=== PATIENT | male | born 1945 | race Caucasian/White ===

== ENCOUNTER → 2020-11-16 10:30 | Outpatient (BNVA) | payer MEDICARE, SELFPAY | PROVIDERS: PCP Family Medicine; Referring Provider Family Medicine; Visit Provider Urology | DX: N32.81 Overactive bladder (principal); N40.1 Benign prostatic hyperplasia with lower urinary tract symptoms; N39.490 Overflow incontinence; N13.8 Other obstructive and reflux uropathy; R33.9 Retention of urine, unspecified | CPT/HCPCS: 51798; 81002; 99202 ==

== ENCOUNTER 2020-12-11 06:18 | Day surgery (SDC) | payer MEDICARE, SELFPAY ==
[2020-12-01 20:20] VITALS: BMI 21.2
[2020-12-11] VITALS (12 sets, daily range): BP systolic 160–184; BP diastolic 84–130; PULSE 59–84; RESP 6–20; TEMP 36.1–36.2; O2SAT 96–100
[2020-12-11] MEDS: levoFLOXacin/D5W 500 MG/100 ML PIGGYBACK 100 MG IV (07:12)
--- NOTE | 2020-12-11 07:20 | HO.ANESPROP2 ---
[facility] Past Medical History Medical History Congenital absence of kidney Dementia Hyperactivity of bladder Raynauds phenomenon Sensory hearing loss Surgical History Surgical History History of colonoscopy Social History Social History Smoking Status: Never smoker Use of substances other than those prescribed or required for medical reasons: No Advance Directives: Yes Advance Directives Information Provided: Yes Advance Directives on File: No (will bring in) Advance Directives Date on File: 11/21/18 Meds Allergies Allergy/AdvReac Type Severity Reaction Status Date / Time azithromycin [From Zithromax] Allergy Shortness Verified 12/11/20 06:28 of Breath doxazosin [From Cardura] Allergy Shortness Verified 12/11/20 06:28 of Breath ampicillin [From Principen] AdvReac head Verified 12/11/20 06:28 pressure cephalexin [From Keflex] AdvReac strange Verified 12/11/20 06:28 behavior nifedipine [From Procardia] AdvReac Unknown Verified 12/11/20 06:28 Home Medications Medication Instructions Recorded Confirmed Last Taken Type No Known Home Meds 12/01/20 12/01/20 Unknown History Exam Exam Date and Time: December 11, 2020 0720 Height,Weight and Vital Signs: Height 5 ft 8 in Weight 63.503 kg Last Vital Signs Temp 97.2 F 12/11/20 06:28 Pulse 61 12/11/20 06:28 Resp 18 12/11/20 06:28 BP 177/94 H 12/11/20 06:28 Pulse Ox 99 12/11/20 06:28 Airway Mallampati Class: II TM Dist: >3cm Neck ROM: Full
[2020-12-11] MEDS: Lactated Ringers 1,000 ML 100 ML IVCONT (07:31)
--- NOTE | 2020-12-11 07:43 | MHC.SHP ---
Pre-Procedural Eval Section B Chief Complaint: overactive bladder Details of Present Illness: Overflow incontinence Relevant Family History (Specify if Yes): No Relevant Social History: None Present Medications: None Medical History: No relevant PMH History of Previous Operations: No relevant previous surgery Allergies: Allergies Allergy/AdvReac Type Severity Reaction Status Date / Time azithromycin [From Zithromax] Allergy Shortness Verified 12/11/20 06:28 of Breath doxazosin [From Cardura] Allergy Shortness Verified 12/11/20 06:28 of Breath ampicillin [From Principen] AdvReac head Verified 12/11/20 06:28 pressure cephalexin [From Keflex] AdvReac strange Verified 12/11/20 06:28 behavior nifedipine [From Procardia] AdvReac Unknown Verified 12/11/20 06:28 Review of Systems Sugical H&P ROS: Negative: Constitution, Cardiovascular, Respiratory, Neurological, Psychiatric, Hem-Onc, Allergic/Immunologic, Gastrointestinal, Genitourinary, Musculoskeletal, Integumentary, Endocrine and Eyes/Ears/Nose/Throat Exam Surgical H&P Exam: Normal: HEENT, Normal: Heart, Normal: Lungs, Normal: Extremities, Normal: Abdomen, Normal: Skin and Normal: Neurological Plan Diagnosis/Plan: Unchanged I have reviewed the history and physical and performed a pertinent physical examination on my patient. No changes have occurred unless specified. Cystoscopy, suprapubic tube placement, laser enucleation of prostate
--- NOTE | 2020-12-11 09:17 | PM.OP ---
Brief Operative Note Date of Service: 12/11/20 Pre-op diagnosis: BPH with urinary retention Post-op diagnosis: same Procedure: Laser enucleation of the prostate Suprapubic tube placement Implants: Nickerson catheter 16 Vietnamese Surgeon: Jarrell Lafleur MD Anesthesia: GLMA Estimated blood loss (mL): 10 Pathology: other (Prostate) Condition: stable Disposition: same day
--- NOTE | 2020-12-11 09:18 | W.PM.OPN ---
Operative Note Operative Note Date of Service: 12/11/20 Narrative: PreOperative Diagnosis: BPH with urinary retention Post Operative Diagnosis: BPH with urinary retention Procedure: 1. Cystoscopy and suprapubic tube placement, 2. Laser enucleation of the prostate Surgeon: Dr Jarrell Lafleur Anesthesia: General Indications for procedure: This is a 75-year-old male. He had presented with overflow incontinence. Large postvoid residual. Urinating many small times a day. This has been going on for number of years. On cystoscopy had a large median lobe double humped. Recommendation was for GreenLight laser enucleation of the prostate plus suprapubic tube placement. Risks and benefits were discussed with himself and with his healthcare proxy. Procedure: After informed consent was verified the patient was brought to the operating room and placed in a supine position. Anesthesia was administered per protocol. Patient was placed in modified dorsal lithotomy position and prepped and draped in a sterile fashion. Safety pause time-out performed. Antibiotics had been confirmed. Cystoscopy was performed. He had a large double helped median lobe. The bladder was filled. A finer needle was placed 2 fingerbreadths superior to the symphysis pubis. A 1 cm incision was made. A trocar was placed in suprapubic tube was placed. This was visible through the cystoscope. Sixteen Nicaraguan Nickerson catheter with 10 cc balloon was placed. The laser resectoscope was placed in the prostate. Using a GreenLight laser the double hump large median lobe was reduced using a combination of enucleation ablation. Issues total of 250 kilojoules with a total lasing time approximately 32 minutes. A large defect was left where the median lobe had been. It was apparent that lateral lobe removal was not necessary at this point in time. A 22 Nicaraguan 30 cc Nickerson catheter was placed with good hemostasis. Specimens were sent for pathology. A belladonna suppository was used for postprocedure pain management. He tolerated procedure well was extubated in the operating room and transferred in a stable condition to the recovery area. Pathology: Prostate specimen Drains: Twenty-two Nicaraguan Nickerson catheter from penis, 16 Nicaraguan Nickerson catheter from suprapubic tube
[2020-12-11] MEDS: fentaNYL citrate/PF 100 MCG/2 ML VIAL 50 MCG IVPUSH ×3 (09:49→10:20)
[2020-12-11] MEDS: oxyCODONE HCl Immed Release 5 MG TABLET PO (10:09)
== END 2020-12-11 11:35 ==
LOC: HO.SSS 06:18
PROVIDERS: PCP Family Medicine; Visit Provider Urology
PROC: 0V507ZZ Destruction of Prostate, Via Natural or Artificial Opening (ICD-10-PCS; CPT 52648; principal; 2020-12-11 07:30)
PROC: (CPT 51102; 2020-12-11 07:30)
DX: N40.1 Benign prostatic hyperplasia with lower urinary tract symptoms (principal); R33.8 Other retention of urine; N32.81 Overactive bladder; N39.490 Overflow incontinence; F03.90 Unspecified dementia, unspecified severity, without behavioral disturbance, psychotic disturbance, mood disturbance, and anxiety; I73.00 Raynaud's syndrome without gangrene; Q60.2 Renal agenesis, unspecified; H91.90 Unspecified hearing loss, unspecified ear; Z79.899 Other long term (current) drug therapy; Z88.1 Allergy status to other antibiotic agents; Z88.8 Allergy status to other drugs, medicaments and biological substances
CPT/HCPCS: 52648; 51102; 88305; J1956; J2405; J3010

== ENCOUNTER → 2020-12-14 10:59 | Outpatient (BNVA) | payer MEDICARE, SELFPAY | PROVIDERS: PCP Family Medicine; Visit Provider Urology | DX: N40.1 Benign prostatic hyperplasia with lower urinary tract symptoms (principal); N13.8 Other obstructive and reflux uropathy; N39.490 Overflow incontinence | CPT/HCPCS: 99212 ==

== ENCOUNTER → 2021-01-03 10:30 | Outpatient (BNVA) | payer MEDICARE, SELFPAY | PROVIDERS: PCP Family Medicine; Visit Provider Urology | DX: Z13.89 Encounter for screening for other disorder (principal) | CPT/HCPCS: 99212 ==

== ENCOUNTER → 2021-01-05 14:01 | Outpatient (BNVA) | payer MEDICARE, SELFPAY | PROVIDERS: PCP Family Medicine; Visit Provider Urology | DX: Z13.89 Encounter for screening for other disorder (principal) | CPT/HCPCS: 51705; 99212 ==

== ENCOUNTER → 2021-01-31 13:09 | Outpatient (BNVA) | payer MEDICARE, SELFPAY | PROVIDERS: PCP Family Medicine; Visit Provider Urology | DX: Z43.5 Encounter for attention to cystostomy (principal); N31.9 Neuromuscular dysfunction of bladder, unspecified | CPT/HCPCS: 51701; 51705; 99212 ==

== ENCOUNTER → 2021-02-28 14:41 | Outpatient (BNVA) | payer MEDICARE, SELFPAY | PROVIDERS: PCP Family Medicine; Visit Provider Urology | DX: N31.9 Neuromuscular dysfunction of bladder, unspecified (principal) | CPT/HCPCS: 51701; 51705; 99212 ==

== ENCOUNTER → 2021-04-05 10:07 | Outpatient (BNVA) | payer MEDICARE, SELFPAY | PROVIDERS: PCP Family Medicine; Visit Provider Urology | DX: Z46.6 Encounter for fitting and adjustment of urinary device (principal); N31.9 Neuromuscular dysfunction of bladder, unspecified | CPT/HCPCS: 51705; 99212 ==

== ENCOUNTER → 2021-05-04 09:59 | Outpatient (BNVA) | payer MEDICARE, SELFPAY | PROVIDERS: PCP Family Medicine; Visit Provider Urology ==

== ENCOUNTER → 2021-05-31 09:37 | Outpatient (BNVA) | payer MEDICARE, SELFPAY | PROVIDERS: PCP Family Medicine; Visit Provider Urology | DX: N31.9 Neuromuscular dysfunction of bladder, unspecified (principal) | CPT/HCPCS: 51705; Q3014 ==

== ENCOUNTER → 2021-12-06 09:04 | Outpatient (BNVA) | payer MEDICARE, SELFPAY | PROVIDERS: PCP Family Medicine; Visit Provider Urology | DX: N31.9 Neuromuscular dysfunction of bladder, unspecified (principal); Z93.50 Unspecified cystostomy status | CPT/HCPCS: 51798; 99212 ==

== ENCOUNTER → 2022-06-12 09:20 | Outpatient (BNVA) | payer MEDICARE, SELFPAY | PROVIDERS: PCP Family Medicine; Visit Provider Urology | DX: N31.9 Neuromuscular dysfunction of bladder, unspecified (principal); N40.1 Benign prostatic hyperplasia with lower urinary tract symptoms; N13.8 Other obstructive and reflux uropathy; N39.0 Urinary tract infection, site not specified | CPT/HCPCS: Q3014 ==

== ENCOUNTER → 2022-12-19 10:13 | Outpatient (BNVA) | payer MEDICARE, SELFPAY | PROVIDERS: PCP Family Medicine; Visit Provider Urology | DX: N31.9 Neuromuscular dysfunction of bladder, unspecified (principal) | CPT/HCPCS: 99212 ==

== ENCOUNTER 2023-07-29 09:03 | Outpatient (AMB) | payer MEDICARE, SELFPAY ==
--- NOTE | 2023-07-29 09:12 | MHC.OFFVIS ---
Intake Intake Visit Reasons: 6m follow up Intake Note: Patient is Present for Follow Up. (Hypotonic Neurogenic Bladder. BPH. Overflow Incontinence) Urology Med: Methenamine Antibiotic Allergy: Azithromycin, Amoxicillin, cephalexin Blood Thinner: None Student Affairs Dean Required: No Accompanied by: Self / Same As Patient Allergies azithromycin [From Zithromax] Allergy (Verified 07/29/23 09:12) Shortness of Breath doxazosin [From Cardura] Allergy (Verified 12/19/22 10:26) Shortness of Breath ampicillin [From Principen] Adverse Reaction (Verified 12/19/22 10:26) head pressure cephalexin [From Keflex] Adverse Reaction (Verified 12/19/22 10:26) strange behavior nifedipine [From Procardia] Adverse Reaction (Verified 12/19/22 10:) Unknown Medication List - Last Reconciled 07/29/23 by Jarrell Lafleur MD catheter (Nickerson Catheter) As directed - 18 Romansh catheterization tray As directed drainage bag Large 3 L overnight urine collection bag fluticasone propionate 50 mcg/actuation 1 spray intranasal BID methenamine hippurate 1 g PO DAILY 90 days sulfamethoxazole-trimethoprim 400-80 mg (Bactrim) 1 tab PO BID sulfamethoxazole-trimethoprim 800-160 mg (Bactrim DS) 1 tab PO BID 5 days syringe (disposable) As directed HPI HPI Comments History of Present Illness Details Torres is a very pleasant male. Accompanied by his partner. He is seen for the following urologic conditions - neurogenic bladder Telemedicine Evaluation 15 min Consultation [employer] Jonathon Video attempted Karlos doing very well Suprapubic site well cared for Takes antibiotics day before and day of catheter change Has methenamine daily Background of progressive memory loss Suprapubic tube change - will be required for foreseeable future Used 18 Romansh Nickerson catheter Doing well with changes and partner changing catheter every 4 weeks Lower urinary tract symptoms: neurogenic bladder Longstanding issues with overflow incontinence Prostate procedure November 2020 GreenLight laser of the prostate with suprapubic tube Suprapubic tube today change Review in 6 months [facility] Medical History Congenital absence of kidney Dementia Hyperactivity of bladder Raynauds phenomenon Sensory hearing loss Surgical History History of colonoscopy Family History (Updated 07/29/23 @ 09:12 by NITISH Senior) Father No problems noted. Mother No problems noted. Social History Advance Directives Date on File: 11/21/18 Review of Systems Const All systems reviewed & are unremarkable except as noted in HPI and below Reports no additional complaints Resp Reports no additional complaints GI Reports no additional complaints Reports as per HPI Musc Reports no additional complaints Physical Exam Telemedicine evaluation Appropriate responses Regular breathing rate and rhythm HEENT Head: Yes normal to inspection Ears: hearing grossly normal bilaterally Eyes General: appearance normal, both eyes and all related structures Neck Neck: Yes normal visual inspection Chest Chest palpation & inspection: normal inspection of the chest Resp Effort & Inspection: normal respiratory effort and able to speak in complete sentences Assessment & Plan Assessment & Plan (1) Hypotonic neurogenic bladder: Code(s): N31.9 - Neuromuscular dysfunction of bladder, unspecified (2) Incomplete emptying of bladder due to benign prostatic hyperplasia: Code(s): N40.1 - Benign prostatic hyperplasia with lower urinary tract symptoms; R33.9 - Retention of urine, unspecified Plan Six month follow-up office Medications: Refilled methenamine hippurate 1 g PO DAILY 90 tabs 1RF 90 days N13.8 - Other obstructive and reflux uropathy, N39.0 - Urinary tract infection, site not specified, N40.1 - Benign prostatic hyperplasia with lower urinary tract symptoms sulfamethoxazole-trimethoprim 800-160 mg (Bactrim DS) 1 tab PO BID 10 tabs 2RF 5 days Patient Instructions: Imaging studies, laboratory and physical exam results were discussed and reviewed in detail. No major barriers to patient understanding were identified. An opportunity to ask questions regarding the treatment plan was provided. All questions were answered. The patient expressed understanding and agreement with the above treatment plan. The patient is aware they should contact our office by phone for worsening of their current condition or the appearance of new urologic symptoms. Compliance is encouraged with any medications and followup testing that is ordered. It is a privilege to participate in the urologic care of your patient. If you have any questions or concerns regarding treatment for the above conditions, or other urologic issues, please do not hesitate to contact me. The office telephone contact is [phone]. This note is constructed using voice recognition software. While every effort has been made to ensure accuracy process control operator errors may have been included. Yours sincerely, Dr Jarrell Lafleur MD, [facility] - Urology Providers of Expert, Compassionate Care for the Genitourinary System Telehealth Telehealth Location of provider rendering services: practice address Location of patient: address on file Patient Identification confirmed using: Name, : Yes Telehealth method: voice only Patient verbally consented to treatment: Yes Patient verbally consented to billing insurance company: Yes Patient informed of any privacy concerns related to visit: Yes Coding Level of Care Code Tele Est Pt Level 3 (16633) Diagnoses Hypotonic neurogenic bladder N31.9 Incomplete emptying of bladder due to benign prostatic hyperplasia N40.1; R33.9
== END 2023-07-29 10:41 | disposition home or self-care (01) ==
LOC: HO.HUSH 09:03
PROVIDERS: PCP Family Medicine; Visit Provider Urology
DX: N31.9 Neuromuscular dysfunction of bladder, unspecified (principal); N40.1 Benign prostatic hyperplasia with lower urinary tract symptoms; R33.9 Retention of urine, unspecified
CPT/HCPCS: 99442

== ENCOUNTER → 2023-07-29 09:03 | Outpatient (BNVA) | payer MEDICARE, SELFPAY | PROVIDERS: PCP Family Medicine; Visit Provider Urology ==

== ENCOUNTER 2024-01-28 09:44 | Outpatient (AMB) | payer MEDICARE, SELFPAY ==
--- NOTE | 2024-01-28 09:47 | MHC.OFFVIS ---
Intake Intake Visit Reasons: 6m follow up confirmed Intake Note: Patient presents today for a follow up Meds- None Allergies to Antibiotic- Azithromycin, Cephalexin Blood Thinner- None Patient has an SP Tube in place, Patient stated he is not taking Methenamine Hippurate Topographical Drafter Required: No Accompanied by: Self / Same As Patient Allergies azithromycin [From Zithromax] Allergy (Verified 01/28/24 09:57) Shortness of Breath doxazosin [From Cardura] Allergy (Verified 01/28/24 09:57) Shortness of Breath ampicillin [From Principen] Adverse Reaction (Verified 01/28/24 09:57) head pressure cephalexin [From Keflex] Adverse Reaction (Verified 01/28/24 09:57) strange behavior nifedipine [From Procardia] Adverse Reaction (Verified 01/28/24 09:57) Unknown Medication List - Last Reconciled 01/28/24 by Jarrell Lafleur MD ascorbate calcium (vitamin C) PO catheter (Nickerson Catheter) As directed - 18 Czech catheterization tray As directed drainage bag Large 3 L overnight urine collection bag fluticasone propionate 50 mcg/actuation 1 spray intranasal BID methenamine hippurate 1 g PO DAILY 90 days sulfamethoxazole-trimethoprim 400-80 mg (Bactrim) 1 tab PO BID sulfamethoxazole-trimethoprim 800-160 mg (Bactrim DS) 1 tab PO BID 5 days syringe (disposable) As directed HPI HPI Comments History of Present Illness Details Torres is a very pleasant male. Accompanied by his partner. He is seen for the following urologic conditions - neurogenic bladder Jos and Torres doing very well Suprapubic site well cared for Takes antibiotics day before and day of catheter change Has methenamine daily Background of progressive memory loss Suprapubic tube change - will be required for foreseeable future Used 18 Czech Nickerson catheter Doing well with changes and partner changing catheter every 4 weeks Refill on Bactrim Lower urinary tract symptoms: neurogenic bladder Longstanding issues with overflow incontinence Prostate procedure November 2020 GreenLight laser of the prostate with suprapubic tube Suprapubic tube today change Review in 6 months [facility] Medical History 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 Mother No problems noted. Social History Comment: urge to void Advance Directives Date on File: 11/21/18 Review of Systems Const Denies chills and Denies fever(s) Card Reports no additional complaints and Denies syncope Resp Denies cough GI Denies abdominal pain and Denies heartburn Reports as per HPI and Denies change in libido Neuro Denies syncope Psych Denies change in libido Endo Denies change in libido Physical Exam Const General: cooperative, healthy appearing, comfortable and no acute distress Orientation/consciousness: patient oriented x3 HEENT Face and sinus: Yes normal facial exam Mouth: moist mucous membranes Neck Neck: Yes normal visual inspection, Yes full ROM and Yes trachea midline Chest Chest palpation & inspection: normal inspection of the chest Resp Effort & Inspection: normal respiratory effort, able to speak in complete sentences and no respiratory distress GI Inspection: Yes normal to inspection Back/Spine/Pelvis Cervical Spine: normal cervical lordosis Thoracic/Lumbar Spine: thoracic and lumbar spine normal to inspection Skin General skin exam: no rashes or lesions noted Neuro General: patient oriented x3, gait normal, tone normal and moves all extremities Extrem General: Yes normal to inspection and Yes capillary refill normal Assessment & Plan Assessment & Plan (1) Hypotonic neurogenic bladder: Code(s): N31.9 - Neuromuscular dysfunction of bladder, unspecified Plan Six-month follow-up review Medications: Refilled sulfamethoxazole-trimethoprim 400-80 mg (Bactrim) Take 1 tablet for 3 days before day of suprapubic tube change, take morning and evening on day of suprapubic tube change, take 1 tab for 3 days after spt change 1 tab PO BID 30 tabs 0RF N40.1 - Benign prostatic hyperplasia with lower urinary tract symptoms, R33.9 - Retention of urine, unspecified methenamine hippurate 1 g PO DAILY 90 tabs 1RF 90 days N13.8 - Other obstructive and reflux uropathy, N39.0 - Urinary tract infection, site not specified, N40.1 - Benign prostatic hyperplasia with lower urinary tract symptoms Patient Instructions: Imaging studies, laboratory and physical exam results were discussed and reviewed in detail. No major barriers to patient understanding were identified. An opportunity to ask questions regarding the treatment plan was provided. All questions were answered. The patient expressed understanding and agreement with the above treatment plan. The patient is aware they should contact our office by phone for worsening of their current condition or the appearance of new urologic symptoms. Compliance is encouraged with any medications and followup testing that is ordered. It is a privilege to participate in the urologic care of your patient. If you have any questions or concerns regarding treatment for the above conditions, or other urologic issues, please do not hesitate to contact me. The office telephone contact is [phone]. This note is constructed using voice recognition software. While every effort has been made to ensure accuracy police academy program coordinator errors may have been included. Yours sincerely, Dr Jarrell Lafleur MD, [facility] - Urology Providers of Expert, Compassionate Care for the Genitourinary System Coding Level of Care Code Est Pt Level 3 (71070) Diagnoses Hypotonic neurogenic bladder N31.9
== END 2024-01-28 10:13 | disposition home or self-care (01) ==
PROVIDERS: PCP Family Medicine; Visit Provider Urology
DX: N31.9 Neuromuscular dysfunction of bladder, unspecified (principal)
CPT/HCPCS: 99213

== ENCOUNTER → 2024-01-28 09:44 | Outpatient (BNVA) | payer MEDICARE, SELFPAY | PROVIDERS: PCP Family Medicine; Visit Provider Urology | DX: N31.9 Neuromuscular dysfunction of bladder, unspecified (principal) | CPT/HCPCS: 99212 ==

== ENCOUNTER 2024-07-28 08:40 | Outpatient (AMB) | payer MEDICARE, SELFPAY ==
--- NOTE | 2024-07-28 08:41 | A.OFFVIS_ITS ---
Intake Visit Reasons: 6m follow up Intake Note: Patient is Present for Telephone Follow Up Urology Med: Methenamine Antibiotic Allergy: Azithromax, Ampicillin, Cephalexin Blood Thinner:None Allergies azithromycin [From Zithromax] Allergy (Verified 01/28/24 09:57) Shortness of Breath doxazosin [From Cardura] Allergy (Verified 01/28/24 09:57) Shortness of Breath ampicillin [From Principen] Adverse Reaction (Verified 01/28/24 09:57) head pressure cephalexin [From Keflex] Adverse Reaction (Verified 01/28/24 09:57) strange behavior nifedipine [From Procardia] Adverse Reaction (Verified 01/28/24 09:57) Unknown HPI Comments Details: Maegan is a very pleasant male. Accompanied by his partner. He is seen for the following urologic conditions - neurogenic bladder Telemedicine Evaluation 15 min Consultation [employer] Jonathon Video Karlos doing very well Suprapubic site well cared for Takes antibiotics day before and day of catheter change Has methenamine daily Background of progressive memory loss Suprapubic tube change - will be required for foreseeable future Used 18 Luxembourger Nickerson catheter Did notice that if he waits 4 weeks for catheter change maegan suffers from urinary tract infections When the catheter is changed every 3 weeks then there are no infections Dennys require catheter change every 3 weeks for the foreseeable future due to his neurogenic bladder Refill on Bactrim Lower urinary tract symptoms: neurogenic bladder Longstanding issues with overflow incontinence Prostate procedure November 2020 GreenLight laser of the prostate with suprapubic tube Suprapubic tube today change Review in 6 months [facility] Medical History 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 Mother No problems noted. Social History Comment: urge to void Advance Directives Date on File: 11/21/18 Review of Systems Const All systems reviewed & are unremarkable except as noted in HPI and below Reports no additional complaints Resp Reports no additional complaints GI Reports no additional complaints Reports as per HPI Musc Reports no additional complaints Physical Exam Telemedicine evaluation Appropriate responses Regular breathing rate and rhythm HEENT Head: Yes normal to inspection Ears: hearing grossly normal bilaterally Eyes General: appearance normal, both eyes and all related structures Neck Neck: Yes normal visual inspection Chest Chest palpation & inspection: normal inspection of the chest Resp Effort & Inspection: normal respiratory effort and able to speak in complete sentences Telehealth Telehealth Telehealth Platform: [employer] Location of provider rendering services: practice address Location of patient: address on file Patient Identification confirmed using: Name, : Yes Telehealth method: video Patient verbally consented to treatment: Yes Patient verbally consented to billing insurance company: Yes Patient informed of any privacy concerns related to visit: Yes Minutes spent on Phone/Video with Pt.: 15 Assessment & Plan Assessment & Plan (1) Hypotonic neurogenic bladder: Code(s): N31.9 - Neuromuscular dysfunction of bladder, unspecified Category: Medical (2) Incomplete emptying of bladder due to benign prostatic hyperplasia: Code(s): N40.1 - Benign prostatic hyperplasia with lower urinary tract symptoms; R33.9 - Retention of urine, unspecified Category: Medical Plan Six-month follow-up office Medications: New ascorbic acid (vitamin C) 1 g PO DAILY 90 days 90 tabs 1RF N31.9 - Neuromuscular dysfunction of bladder, unspecified, N39.0 - Urinary tract infection, site not specified Changed From catheter (Nickerson Catheter) As directed - 18 Luxembourger 2 ea 11RF N31.9 - Neuromuscular dysfunction of bladder, unspecified To catheter (Nickerson Catheter) As directed - 18 Luxembourger - change every 3 weeks for infections 4 ea 2RF N31.9 - Neuromuscular dysfunction of bladder, unspecified Refilled 2 methenamine hippurate 1 g PO DAILY 90 days 90 tabs 1RF N13.8 - Other obstructive and reflux uropathy, N39.0 - Urinary tract infection, site not specified, N40.1 - Benign prostatic hyperplasia with lower urinary tract symptoms drainage bag Large 3 L overnight urine collection bag 1 ea 11RF N31.9 - Neuromuscular dysfunction of bladder, unspecified, N40.1 - Benign prostatic hyperplasia with lower urinary tract symptoms, R33.9 - Retention of urine, unspecified sulfamethoxazole-trimethoprim 400-80 mg (Bactrim) Take 1 tablet for 3 days before day of suprapubic tube change, take morning and evening on day of suprapubic tube change, take 1 tab for 3 days after spt change 1 tab PO BID 30 tabs 2RF N40.1 - Benign prostatic hyperplasia with lower urinary tract symptoms, R33.9 - Retention of urine, unspecified Patient Instructions: Imaging studies, laboratory and physical exam results were discussed and reviewed in detail. No major barriers to patient understanding were identified. An opportunity to ask questions regarding the treatment plan was provided. All questions were answered. The patient expressed understanding and agreement with the above treatment plan. The patient is aware they should contact our office by phone for worsening of their current condition or the appearance of new urologic symptoms. Compliance is encouraged with any medications and followup testing that is ordered. It is a privilege to participate in the urologic care of your patient. If you have any questions or concerns regarding treatment for the above conditions, or other urologic issues, please do not hesitate to contact me. The office telephone contact is [phone]. This note is constructed using voice recognition software. While every effort has been made to ensure accuracy dragline operator helper errors may have been included. Yours sincerely, Dr Jarrell Lafleur MD, [facility] - Urology Providers of Expert, Compassionate Care for the Genitourinary System Coding Level of Care Code Tele Est Pt Level 3 (31870) Diagnoses Hypotonic neurogenic bladder N31.9 Incomplete emptying of bladder due to benign prostatic hyperplasia N40.1; R33.9
== END 2024-07-28 09:12 | disposition home or self-care (01) ==
LOC: HO.HUSH 08:40
PROVIDERS: PCP Family Medicine; Visit Provider Urology
DX: N31.9 Neuromuscular dysfunction of bladder, unspecified (principal); N40.1 Benign prostatic hyperplasia with lower urinary tract symptoms; R33.9 Retention of urine, unspecified
CPT/HCPCS: 99213

== ENCOUNTER → 2024-07-28 08:40 | Outpatient (BNVA) | payer MEDICARE, SELFPAY | PROVIDERS: PCP Family Medicine; Visit Provider Urology ==

== ENCOUNTER 2025-01-26 09:37 | Outpatient (AMB) | payer MEDICARE, SELFPAY ==
--- NOTE | 2025-01-26 09:44 | A.OFFVIS_ITS ---
Intake Visit Reasons: 6m follow up Intake Note: Patient is present for 6M F/U Urology Medication:VITAMIN C,BACTRIM,METHENAMINE HIPPURATE Antibiotic Allergy:AZITHROMYCIN,DOXAZOSIN,AMPICILLIN,CEPHALEXIN Blood Thinner:NONE Accredited Pharmacy Technician Required: No Allergies azithromycin [From Zithromax] Allergy (Verified 01/26/25 09:46) Shortness of Breath doxazosin [From Cardura] Allergy (Verified 01/26/25 09:46) Shortness of Breath ampicillin [From Principen] Adverse Reaction (Verified 01/26/25 09:46) head pressure cephalexin [From Keflex] Adverse Reaction (Verified 01/26/25 09:46) strange behavior nifedipine [From Procardia] Adverse Reaction (Verified 01/26/25 09:46) Unknown [facility] Medical History 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 Mother No problems noted. Social History Comment: urge to void Advance Directives Date on File: 11/21/18 Results AMB Urinalysis, Automated UA Leukoctes 125 Néstor/uL Last Edit by KIAN Bhatt on 01/26/25 09:49 UA Nitrite Negative Last Edit by KIAN Bhatt on 01/26/25 09:49 UA Urobilinogen 0.2 mg/dL Last Edit by KIAN Bhatt on 01/26/25 09:4 9 UA Protein 100 mg/dL Last Edit by KIAN Bhatt on 01/26/25 09:49 UA pH 6.0 Last Edit by KIAN Bhatt on 01/26/25 09:49 UA Blood 10 Jose/uL Last Edit by KIAN Bhatt on 01/26/25 09:49 UA Specific [place] 1.015 Last Edit by KIAN Bhatt on 01/26/25 09: 49 UA Ketone Negative Last Edit by Abi Chavarria CCMA on 01/26/25 09:49 UA Bilirubin 0 mg/dL Last Edit by KIAN Bhatt on 01/26/25 09:49 UA Glucose 0 mg/dL Last Edit by KIAN Bhatt on 01/26/25 09:49 Results Reviewed Results Reviewed: Laboratory Last Values Urine pH (Auto) 6.0 01/26/25 09:49 Specific [place] (Auto) 1.015 01/26/25 09:49 Urine Protein (Auto) 100 mg/dL 01/26/25 09:49 Glucose (UA)(Auto) 0 mg/dL 01/26/25 09:49 Urine Ketones (Auto) Negative 01/26/25 09:49 Urine Blood (Auto) 10 Jose/uL 01/26/25 09:49 Urine Nitrite (Auto) Negative 01/26/25 09:49 Urine Bilirubin (Auto) 0 mg/dL 01/26/25 09:49 Urine Urobilinogen (Auto) 0.2 mg/dL 01/26/25 09:49 Leukocyte Esterase (Auto) 125 Néstor/uL 01/26/25 09:49 Assessment & Plan Assessment & Plan Orders: Orders AMB Urinalysis Automated Today Z13.9 - Encounter for screening, unspecified Coding
--- OUTSIDE RECORDS SUMMARY | 2025-01-26 10:26 | XMS_ITS | Encounter Summary ---
Author Organization [facility] Address [address] [place] [address] Care Team Providers Care Machine Designer Name Role Phone Ganesh De La Cruz DNP Primary Care Provider [phone] Encounter Details Date Type Department Care Team (Late st Contact Info) Description 08/03/2024 Telephone [facility] [address] [place] [address] Ganesh De La Cruz DNP [address] [place], [place] [id number] Social History Tobacco Use Types Packs/Day Years Used Date Smoking Tobacco: Never Passive Smoke Exposure: Never Smokeless Tobacco: Never Alcohol Use Standard Drinks/Week Comments Never 0 (1 standard drink = 0.6 oz pur e alcohol) Sex and Gender Information Value Date Recorded Sex Assigned at Male 10/04/2023 10:21 AM EST Legal Sex Male 6:22 PM EDT Gender Identity Male 08/16/2022 6:22 PM EDT Sexual Orientation Choose not to disclose 2021 6:22 PM EDT documented as of this encounter Miscellaneous Notes * Telephone Encounter - Nuha Mart - 08/04/2024 12:26 PM EDT REMA---Spoke to Maegan,he said urology is the ones who handle all of his supplies and [facility] kept suggesting to contact us to see if we can help.We have no record of what supplies he's using.Not many suppliers will accept [place] [employer] so I'm not sure how we should move forward. He is going to ask [place]idad for list of DME suppliers who will take his insurance. I advised him to let the urology office know of any other suppliers that trinidad finds that will accept his insurance and they can decide if they want to switch DME suppliers. He will call us back if they have any more issues. * Telephone Encounter - Marycruz Tye - 08/03/2024 5:00 PM EDT Pt. Has called with the advocate [facility] from [facility] helping him to ask us to help him with getting a new supplier for him for his catheter orders ( that he has on going infection) and has been having a extremely difficult time with the [employer] ( [employer]) Trinidad states they have grievances and appeals with this company as he needs more catheter the whole process has been extremely difficult . So there asking if Ganesh Castro Please find a different Supplier that they can send a new prior auth to and go through a different company.[facility] has asked that we please reach out to maegan to discuss this and if it can be done as soon as possible. Call back# [phone] documented in this encounter Plan of Treatment Not on file documented as of this encounter Visit Diagnoses Not on filedocumented in this encounter Care Teams Machine Designer Relationship Specialty Start Date End Date Ganesh De La Cruz DNP [address] [place] [address] PCP - General Family Medicine 03/24/23 documented as of this encounter
--- OUTSIDE RECORDS SUMMARY | 2025-01-26 10:26 | XMS_ITS | Data Portability ---
[facility] Organization [facility] Address [address] [place] [address] Care Team Providers Care Molder Hand Name Role Phone ARTI HERNANDEZ Primary Care Provider ARTI HERNANDEZ Referring Provider LIVIER KRISHNAN Primary Care Provider Assessment No assessment recorded. Plan of Treatment Reminders Order Date Submit Date Provider Last Modified By Organization Details Last Modified Time Details Appointments None recorded. Lab CMP, serum or plasma 2023 024 [facility] (Outpatient Registration) , [address] [place], [address], 4 15:35:59 CBC w/ auto diff 2023 024 [facility] (Outpatient Registration) , [address] [place], [address], 4 15:16:42 unlisted lab - lyme dis total Ab w/ reflex 2023 024 [facility] (Outpatient Registration) , [address] [place], [address], 4 14:10:21 urinalysis , dipstick 2019 020 [facility], [address] [place] [address] [address] [place], [address], 0 11:49:22 Referral None recorded. Procedures None recorded. Surgeries None recorded. Imaging US, bladder 2019 020 [facility], [address], [place], [address], 0 10:53:11 Medication Orders doxycyclin e hyclate 100 mg capsule 2023 024 [email or web address] [id number], [address] [facility], [place], [address], 4 10:29:28 finasterid e 5 mg tablet 2019 020 [email or web address] [id number], [address] [facility], [place], [address], 4 10:13:20 Patient TargetsNo targets recorded. Patient Instructions Encounter Date Encounter Id Patient Instructions Last Modified By Organization Details Last Modified Time 03/17/2024 [id number] lyme disease: ca re instructions avaine Not available 03/17/2024 10:29:28 Avoid ticks: Learn where ticks are found in your community, and stay away from those areas if possible. Cover as much of your body as possible when you work or play in grassy or wooded areas. Use insect repellents, such as products containing DEET. You can spray them on your skin. Take steps to control ticks on your property if you live in an area where Lyme disease occurs. Clear leaves, brush, tall grasses, woodpiles, and stone fences from around your house and the edges of your yard or garden. This may help get rid of ticks. When you come in from outdoors, check your body for ticks, including your groin, head, and underarms. The ticks may be about the size of a poppy seed. If no one else can help you check for ticks on your scalp, comb your hair with a fine-tooth comb. If you find a tick, remove it quickly. If you can't remove it with your fingers, use tweezers to grasp the tick as close to its mouth (the part in your skin) as possible. Slowly pull the tick straight out-do not twist or yank-until its mouth releases from your skin. Ticks can come into your house on clothing, outdoor gear, and pets. These ticks can fall off and attach to you. Check your clothing and outdoor gear. Remove any ticks you find. Then put your clothing in a clothes dryer on high heat for 1 hour to kill any ticks that might remain. Check your pets for ticks after they have been outdoors. When hiking in the [place], carry a small dry jar or ziplock bag. If you find a tick on your body, remove the tick and put it in the jar or bag. Store the container in the freezer so you can give it to your doctor if symptoms develop. The tick can be tested to learn whether it is carrying the bacteria that cause Lyme disease avaine Not available 03/17/2024 10:29:34 You have had an Urgent Care Visit which is designed to address acute issues. It does not represent an exhaustive evaluation of your symptom complex, but is an attempt to treat and manage the most likely cause of your most pressing physical issues. If you are not improved in the time frame that we have discussed, please seek the advice of your PCP who is in a position to order further diagnostic testing and possible specialist consultation. If you are rapidly deteriorating despite the treatment recommendations please do not wait to see your PCP and do proceed to the closest ER where a comprehensive evaluation including consideration to lab and other diagnostic testing as well as consultation is more expeditiously accessible. If you were prescribed medications they have been directly submitted to your pharmacy on file. Please make sure you finish all your medications and if you develop major side effects related to them please do stop taking them and check with your PCP to see if you need to get an alternative medication. If labs or xray were ordered, we will call you with the results if there is any change to your plan of care. Please note this report has been produced using speech recognition software and may contain errors related to that systems translation. Errors in grammar, punctuation, and spelling may be present. It may also include errors in words and phrases . If there are any questions or concerns please feel free to contact me for clarification. avaine Not available 03/17/2024 10:29:43 Reason for Referral None Reported. Results Created Date Observation Date Name Description Value Unit Range Abnormal Flag Note LastModifiedBy Organization Detail LastModifiedTime 07/13/20 20 07/13/2020 urina lysis , dipst ick Specific [place] 1.010 Not Available [address], [place], [address], 07/13/2020 10:12:52 07/13/20 20 07/13/2020 urina lysis , dipst ick PH 5.0 Not Available [place] [address], [place], [address], 07/13/2020 10:12:52 07/13/20 20 07/13/2020 urina lysis , dipst ick Leukocytes Negati ve Not Available [place] [address], [place], [address], 07/13/2020 10:12:52 07/13/20 20 07/13/2020 urina lysis , dipst ick Nitrite negati ve Not Available [place] [address], [place], [address], 07/13/2020 10:12:52 07/13/20 20 07/13/2020 urina lysis , dipst ick Protein Trace Not Available [place] [address], [place], [address], 07/13/2020 10:12:52 07/13/20 20 07/13/2020 urina lysis , dipst ick Glucose Normal Not Available [place] [address], [place], [address], 07/13/2020 10:12:52 07/13/20 20 07/13/2020 urina lysis , dipst ick Ketone Normal Not Available [place] [address], [place], [address], 07/13/2020 10:12:52 07/13/20 20 07/13/2020 urina lysis , dipst ick Urobilinogen Normal Not Available [place] [address], [place], [address], 07/13/2020 10:12:52 07/13/20 20 07/13/2020 urina lysis , dipst ick Bilirubin Negati ve Not Available [address] [place], [address], 07/13/2020 10:12:52 07/13/20 20 07/13/2020 urina lysis , dipst ick Blood Negati ve Not Available [address] [place], [address], 07/13/2020 10:12:52 07/13/20 20 07/13/2020 urina lysis , dipst ick Lot #: [id number] Not Available [address] [place], [address], 07/13/2020 10:12:52 07/13/2007/13/2020 urina lysis , dipst ick Exp Date: 2019 Not Available [address] [place], [address], 07/13/2020 10:12:52 07/13/20 20 07/13/2020 US, bladd er residual 637 mL Not Available [address] [place], [address], 07/13/2020 10:12:59 03/17/20 24 03/17/2024 COMPL ETE BLOOD COUNT AUTO DIFF white blood count 6.20 K/uL 3.5-11 .0 normal Not Available [facility] [address] [place], [place] [address] [place], [address] 03/17/2024 15:16:42 03/17/20 24 03/17/2024 COMPL ETE BLOOD COUNT AUTO DIFF red blood count 4.20 M/uL 3.90-5 .50 normal Not Available [facility] [address] [place], [address] 03/17/2024 15:16:42 03/17/2003/17/2024 COMPL ETE BLOOD COUNT AUTO DIFF hemoglobin 13.4 g/dL 14.0-1 8.0 low Not Available [facility] [address] [place], [place] [address] [place], [address] 03/17/2024 15:16:42 03/17/20 24 03/17/2024 COMPL ETE BLOOD COUNT AUTO DIFF hematocrit 41.0 % 42.0-5 4.0 low Not Available [facility] [address] [place] [address], [address] 03/17/2024 15:16:42 03/17/20 24 03/17/2024 COMPL ETE BLOOD COUNT AUTO DIFF mean corpuscular volume 97.6 fL 80.0-1 00.0 normal Not Available [facility] [address] [place] [address], [address] 03/17/2024 15:16:42 03/17/20 24 03/17/2024 COMPL ETE BLOOD COUNT AUTO DIFF mean corpuscular hemoglobin 31.9 pg 25.4-3 4.6 normal Not Available [facility] [address] [place] [address], [address] 03/17/2024 15:16:42 03/17/20 24 03/17/2024 COMPL ETE BLOOD COUNT AUTO DIFF mean corpuscular HGB conc 32.7 g/dL 31.0-3 7.0 normal Not Available [facility] [address] [place] [address], [address] 03/17/2024 15:16:42 03/17/20 24 03/17/2024 COMPL ETE BLOOD COUNT AUTO DIFF red cell distribution width 13.4 % 11.5-1 4.5 normal Not Available [facility] [address] [place] [address], [address] 03/17/2024 15:16:42 03/17/20 24 03/17/2024 COMPL ETE BLOOD COUNT AUTO DIFF platelet count 182 K/uL 150-40 0 normal Not Available [facility] [address] [place] [address], [address] 03/17/2024 15:16:42 03/17/20 24 03/17/2024 COMPR EHENS SEVEN MET. PANEL sodium 139 mmol/ L 136-14 5 normal Not Available [facility] [address] [place] [address], [address] 03/17/2024 15:35:59 03/17/20 24 03/17/2024 COMPR EHENS SEVEN MET. PANEL potassium 4.96 mmol/ L 3.5-5. 1 normal Not Available [facility] [address] [place] [address], [address] 03/17/2024 15:35:59 03/17/20 24 03/17/2024 COMPR EHENS SEVEN MET. PANEL chloride 103 mmol/ L 98-107 normal Not Available [facility] [address] [place], [address] 03/17/2024 15:35:59 03/17/20 24 03/17/2024 COMPR EHENS SEVEN MET. PANEL carbon dioxide 26 mmol/ L 22-29 normal Not Available [facility] [address] [place], [address] 03/17/2024 15:35:59 03/17/20 24 03/17/2024 COMPR EHENS SEVEN MET. PANEL anion gap 16 mmol/ L 10-20 normal Not Available [facility] [address] [place], [address] 03/17/2024 15:35:59 03/17/20 24 03/17/2024 COMPR EHENS SEVEN MET. PANEL blood urea nitrogen 36 mg/dL 8-23 high Not Available [facility] [address] [place], [address] 03/17/2024 15:35:59 03/17/20 24 03/17/2024 COMPR EHENS SEVEN MET. PANEL creatinine 1.71 mg/dL 0.67-1 .17 high Not Available [facility] [address] [place], [address] 03/17/2024 15:35:59 03/17/20 24 03/17/2024 COMPR EHENS SEVEN MET. PANEL estimated glomerular filt rate 40 GFR Value : mL/mi n/1.7 3 squar e meter s Calcu latio n: CKD-E PI Creat inine Equat ion (2020 ) Chron ic Kidne y Disea se is defin ed as eithe r of the follo wing prese nt for >= 3 month s: - GFR less than 60 mL/mi n/1.7 3 squar e meter s. - Micro album in:Ur . Creat inine Ratio >= 30 mg/g or other marke rs of kidne y damag e Kidne y failu re is less than 15 mL/mi n/1.7 3 squar e meter s This test is not perfo rmed in patie nts under the age of 18. Not Available [facility] [address] [place], [address] 03/17/2024 15:35:59 03/17/20 24 03/17/2024 COMPR EHENS SEVEN MET. PANEL glucose 113 mg/dL 82-115 normal Not Available [facility] [address] [place], [address] 03/17/2024 15:35:59 03/17/20 24 03/17/2024 COMPR EHENS SEVEN MET. PANEL calcium 9.2 mg/dL 8.8-10 .2 normal Not Available [facility] [address] [place], [address] 03/17/2024 15:35:59 03/17/20 24 03/17/2024 COMPR EHENS SEVEN MET. PANEL bilirubin total 0.8 mg/dL 0.2-1. 2 normal Not Available [facility] [address] [place], [address] 03/17/2024 15:35:59 03/17/20 24 03/17/2024 COMPR EHENS SEVEN MET. PANEL aspartate amino transferase 26 U/L 5-40 normal Not Available [facility] Department [address] [place], [address] 03/17/2024 15:35:59 03/17/20 24 03/17/2024 COMPR EHENS SEVEN MET. PANEL alanine aminotransfe rase 24 U/L 5-41 normal Not Available [facility] [address] [place], [address] 03/17/2024 15:35:59 03/17/20 24 03/17/2024 COMPR EHENS SEVEN MET. PANEL total protein 6.5 g/dL 6.4-8. 3 normal Not Available [facility] [address] [place], [address] 03/17/2024 15:35:59 03/17/20 24 03/17/2024 COMPR EHENS ESVEN MET. PANEL albumin level 4.1 g/dL 3.5-5. 2 normal Not Available [facility] [address] [place], [address] 03/17/2024 15:35:59 03/17/20 24 03/17/2024 COMPR EHENS SEVEN MET. PANEL globulin 2.4 gm/dL 2.0-3. 5 normal Not Available [facility] [address] [place], [address] 03/17/2024 15:35:59 03/17/20 24 03/17/2024 COMPR EHENS SEVEN MET. PANEL albumin globulin ratio 1.7 % 1.1-2. 5 normal Not Available [facility] [address] [place], [address] 03/17/2024 15:35:59 03/17/20 24 03/17/2024 COMPR EHENS SEVEN MET. PANEL alkaline phosphatase 97 U/L 40-129 normal Not Available [facility] [address] [place], [address] 03/17/2024 15:35:59 03/17/20 24 03/17/2024 MANUA L DIFFE RENTI AL total cells counted 100 Not Available [facility] [address] [place] [address], [address] 03/17/2024 16:04:05 03/17/20 24 03/17/2024 MANUA L DIFFE RENTI AL neutrophils percent manual 75 % 35-66 high Not Available [facility] [address] [place] [address], [address] 03/17/2024 16:04:05 03/17/20 24 03/17/2024 MANUA L DIFFE RENTI AL band neutrophils percent 1 % 0-3 normal Not Available [facility] [address] [place] [address], [address] 03/17/2024 16:04:05 03/17/20 24 03/17/2024 MANUA L DIFFE RENTI AL lymphocytes percent manual 12 % 25-45 low Not Available [facility] [address] [place], [address] 03/17/2024 16:04:05 03/17/20 24 03/17/2024 MANUA L DIFFE RENTI AL atypical lymphs percent manual 2 0-0 high Not Available [facility] [address] [place] [address], [address] 03/17/2024 16:04:05 03/17/20 24 03/17/2024 MANUA L DIFFE RENTI AL monocytes percent manual 9 % 0-13 normal Not Available [facility] [address] [place], [address] 03/17/2024 16:04:05 03/17/20 24 03/17/2024 MANUA L DIFFE RENTI AL eosinophils percent manual 1 % 0-8 normal Not Available [facility] [address] [place] [address], [address] 03/17/2024 16:04:05 03/17/20 24 03/17/2024 MANUA L DIFFE RENTI AL neutrophils absolute manual 4.71 K/uL 1.5-7. 5 normal Not Available [facility] [address] [place] [address], [address] 03/17/2024 16:04:05 03/17/20 24 03/17/2024 MANUA L DIFFE RENTI AL lymphocytes absolute manual 0.74 K/uL 0.8-4. 8 low Not Available [facility] [address] [place] [address], [address] 03/17/2024 16:04:05 03/17/20 24 03/17/2024 MANUA L DIFFE RENTI AL atypical lymph absolute manual 0.12 0-0 high Not Available [facility] [address] [place] [address], [address] 03/17/2024 16:04:05 03/17/20 24 03/17/2024 MANUA L DIFFE RENTI AL monocytes absolute manual 0.56 K/uL 0.4-1. 3 normal Not Available [facility] [address] [place] [address], [address] 03/17/2024 16:04:05 03/17/20 24 03/17/2024 MANUA L DIFFE RENTI AL eosinophils absolute manual 0.06 K/uL 0.04-0 .54 normal Not Available [facility] [address] [place] [address], [address] 03/17/2024 16:04:05 03/17/20 24 03/17/2024 MANUA L DIFFE RENTI AL large platelet 2+ (MODER ATE) Not Available [facility] [address] [place] [address], [address] 03/17/2024 16:04:05 05/03/17/2024 JENNIFER ROLDAN RBC morphology NORMAL Not Available [facility] Department [address] [place], [address] 03/17/2024 16:04:05 03/17/20 24 03/18/2024 LYME DIS TOTAL AB W/ REFLE X lyme total antibody carmen NEGATI VE negati ve Lyme antib odies not detec tato. Refle x testi ng is not indic ated. No labor atory evide nce of infec tion with B. burgd orfer i (Lyme disea se). Negat seven resul ts may occur in patie nts recen tly infec tato (less than or equal to 14 days) with B. burgd orfer i. If recen t infec tion is suspe cted, repea t testi ng on a new sampl e colle cted in 7 to 14 days is recom fani d. Perfo rmed at: 01 - [facility] [address], [facility] [place] [address] Lab Direc tor: Ciara Arvizu MD, Phone : [phone] Not Available [facility] [address] [place], [address] 03/18/2024 14:10:21 Result Notes None recorded. Procedures Surgical History Date Name Laterality Status Provider Name and Address Organization Details Recorded Time 07/13/20 20 IPSS - International Prostate Symptom Score completed Ofelia Quach MA [facility] 07/13/2020 10:10:30 Imaging Results None recorded. Procedure Notes None recorded. Medical Equipment None Reported. Allergies No known drug allergies Medications Name Sig Start Date Stop Date Status Note LastModified by Organization Details LastModified Time doxycycline hyclate 100 mg capsule TAKE 2 CAPSULES EVERY DAY BY ORAL ROUTE FOR 1 DAY. active Not Available Not Available No t Available sulfamethoxa zole 400 mg-trimethop rim 80 mg tablet PLEASE SEE ATTACHED FOR DETAILED DIRECTIONS active Not Available Not Available N ot Available sulfamethoxa zole 800 mg-trimethop rim 160 mg tablet TAKE 1 TABLET BY MOUTH TWICE A DAY FOR 5 DAYS active Not Available Not Available No t Available methenamine hippurate 1 gram tablet TAKE 1 TABLET BY MOUTH DAILY active Not Available Not Available Not Available finasteride 5 mg tablet Take 1 tablet every day by oral route for 30 days. 2019 active Pt not takin g. DMB Not Available Not Available Not Available alfuzosin ER 10 mg tablet,exten ded release 24 hr Take 2 tablets every day by oral route. active Pt not takin g. DMB Not Available Not Available Not Available Vitamin C active Not Available Not Cydney ilable Not Available Vitals Date Recorded Body weight Body temperature Oxygen saturation Oxygen saturation in Arterial blood by Pulse oximetry Heart rate Systolic blood pressure Diastolic blood pressure Provider Name and Address Organization Details Last Updated DateTime 4 77573.8 9 g 98.1 [degF] 97 % 97 % 80 /min 116 mm[Hg] 60 mm[Hg] Shelly Mckeon [place] MD [facility] 4 10:16:51 Date Recorded Body weight Body mass index (BMI) Body height Heart rate Systolic blood pressure Diastolic blood pressure Provider Name and Address Organization Details Last Updated DateTime 0 85608.4 5 g 21 kg/m2 172.72 cm 75 /min 152 mm[Hg] 85 mm[Hg] Mahnaz Ginette [facility] 0 10:12:31 Social History Question Answer Notes LastModified by Organizat ion Details LastModified Time Tobacco Smoking Status Never Smoker Ofelia zaman [facility] 07/13/2020 10:08:33 What Is Your Level Of Alcohol Consumption? None Information not available 07/13/2020 Special Diet No Information not available 07/13/2020 Marital Status Informatio n not available 07/13/2020 Sex: Unknown Functional Status None recorded. Mental Status None recorded. Family History Relationship Description Onset Age of this Age Resolved Age Notes LastModified by Organization Details LastModified Time Father No current problems or disability Not available 07/13 10:08:46 Mother No current problems or disability Not available 07/13 10:08:46 Medical History Condition Response cancer N HIV or AIDS N arthritis Y asthma N glaucoma N depression N high blood pressure N GERD / reflux N diabetes N heart disease N metal implants N anesthesia allergy/complications N lung disease N other N CVA/stroke N thyroid disease or other endocrine probl ems N nausea/vomiting N Past Encounters Encounter ID Performer Location Encounter Start Date Encounter Closed Date Diagnosis/Indication Diagnosis SNOMED-CT Code Diagnosis ICD10 Code Diagnosis Note [id number] Moshe Archuleta MD [address] [place] [address] 07/13/2020 10:03:04 07/13/2020 10:53:11 Increased frequency of urination 339245353 R35.0 Torres has had no response to the alfuzosin. I told Torres and his partner that his increased frequency is due to his incomplete emptying of bladder. Incomplete emptying of urinary bladder 943157638 R39.14 Torres has a large PVR of 637mL. Will recheck at next visit Benign pro static hyperplasia with outflow obstruction 573981912 N40.1 Torres has frequency and nocturia which is due to poor emptying of bladder, today he has a PVR of 637mL. He has overdosed on alfuzosin. I told Torres and his partner that surgery was indicated due to large residual and non response to alfuzosin. We discussed TURP, laser treatment, and urolift, ablative therapy such as steam and laser. I told them TURP was the gold standard and laser was a close second. Torres is suffering from alzheimer' s and his partner would like to discuss it further with Torres at home and do some research and will call with their decision. I will start him on finasterid e 5mg. [id number] [facility] [address] [place] [address] 03/17/2024 10:05:46 03/17/2024 10:33:44 Tick bite 97396951 W57.XXXA 79-year-ol d male presents to urgent care with past medical for complaint of tick bites on his lower extremitie s. noe states ticks on him on Friday when he noticed them in the ear with a root removed. Patient unsure length of time discussed with patient we will order labs and call with results. Will give a one-time dose of antibiotic s. Will treat prophylact ically with doxycyline 200 mg x 1 dose. Educated pt on side effects of medication . Educated pt at length regarding Lyme disease symptoms, including headache, fever, bullseye rash, joint pain and fatigue. Instructed pt to f/u if any of these symptoms develop. Vital signs Health Concerns Section Related Observation LastModified by Organization Detai ls LastModified Time None Recorded Concern Status LastModified by Organization Details LastModified Time None Recorded Advance Directives Directive None Recorded Payers Encounter Date Sequence Insurance Name Policy Number Policy Avila Covered Member ID Avila Member ID Guarantor Name 07/13/2020 1 [facility] (MEDICARE REPLACEMENT HMO) Torres Mario [id number] Torres Mendezrenetta 03/17/2024 1 [facility] (MEDICARE REPLACEMENT HMO) Torres Mario [id number] Torres Mario Notes Date Note Type Note Provider Name and Address Organization Details Recorded Time 07/13/2020 text/html Urgency & FrequencyReported bypatient.Quality:wors ening Severity:severe Duration:constant (every night (not during the day)) Onset/Timing:onset timing: >1 yr Context:no known precipitating factors Alleviating Factors:none mentioned Aggravating Factors:none mentioned Associated Symptoms:no abdominal pain; no flank pain; no chills; no constipation; no diarrhea; no dribbling; no dysuria; complete emptying; no hematospermia; no hematuria; no hesitancy; no impotence; no loss of libido; no nausea; no nocturia; no odor; no straining stream; no stress incontinence; no temperature; no urgency; no urge incontinence; no vomiting Has been alfuzosin 10mg for the past 2 years with no improvement. Partner states that he in unable to urinate unless sitting down. But does not strain to urinate. Partner denies incontinence, hematuria, diarrhea, constipation, or straining. History of kidney stone once. Denies history of bladder surgery. IPSS 12/01 Moshe Archuleta MD [address] [place] [address], [id number], [facility] 07/27/2020 11:49:56 03/17/2024 text/html 79 yr old male presents today due to a tick bite. Pt has Alzheimer's and is with his legal partner today. Jos his partner noticed pt itching on Friday or to one of what he thought was a mole then realized that it was a tick. Pt has a total of 4 ticks. Pt has an ongoing prescription to sulfamethoxazole for his stoll. DMB Teresa Walters MD [address] [place] [address], [id number], [facility] 03/17/2024 15:06:20
--- OUTSIDE RECORDS SUMMARY | 2025-01-26 10:26 | XMS_ITS | Encounter Summary ---
Author Organization [employer] Address [address] [facility] 7t [place] [address] Care Team Providers Care Salesperson Furs Name Role Phone Ganesh De La Cruz DNP Primary Care Provider [phone] Encounter Details Date Type Department Care Team (Late st Contact Info) Description 01/28/2024 Telephone [facility] [address] [facility] [address] [place] [address] Ganesh De La Cruz DNP [address] [place], [place] [id number] Social History Tobacco Use Types Packs/Day Years [...] encounter Miscellaneous Notes * Telephone Encounter - Precious Perez - 01/28/2024 1:52 PM EDT Allyn is calling from urology and needs a insurance referral . NPI # [id number] , for 10 visits ,start date 01/28/24 . Code N31.9 . documented in this encounter Plan of Treatment Not on file documented as of this encounter Visit Diagnoses Not on filedocumented in this encounter Care Teams Salesperson Furs Relationship Specialty Start Date End Date Ganesh De La Cruz DNP [address] [place] [address] PCP - General Family Medicine 03/24/23 documented as of this encounter
--- OUTSIDE RECORDS SUMMARY | 2025-01-26 10:26 | XMS_ITS | Clinical Summary ---
Author Organization [employer] Address [address] [facility] 7[address] [place] [address] Care Team Providers Care Election Watcher Name Role Phone Ganesh De La Cruz JAZZMINE Primary Care Provider Allergies No known active allergies Medications methenamine hippurate (Hiprex) 1 g tablet Take 1 g by mouth in the morning. 08/15/20 Active sulfamethoxazo le-trimethopri m (Bactrim DS) 800-160 MG tablet Take 1 tablet by mouth 2 times daily. 10/04/20 23 Active mineral oil-hydrophili c petrolatum (Aquaphor) ointment Apply topically if needed for dry skin. 396 g 1 08/11/20 24 025 Active hydrocortisone 2.5 % ointment APPLY TOPICALLY IF NEEDED IN THE MORNING AND AT BEDTIME FOR RASH. 20 g 1 01/25/20 25 Active hydrocortisone 2.5 % ointment APPLY TOPICALLY IF NEEDED IN THE MORNING AND AT BEDTIME FOR RASH. 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 Assessment & Plan (08/11/2024 8:17 PM EDT): The interesting thing is, the rawness of these suggests psoriasis but aside from one on his knee, they're in all the wrong places I would thing tinea but it's predominantly pruritic and they shouldn't just evaporate after couple days Increase hydrocortisone to 2.5% Can use aquaphor for surrounding dry skin No better in 1 or 2 wks will return Discussed how oral steroid for severe pruritus is short-term fix with potentially severe consequences in elderly/dementia pt Meanwhile, derm referral Chronic renal failure, stage 3b 10/22/2023 Benign prostatic hyperplasia 09/11/2020 Sensory hearing loss, bilateral 06/08/2020 10/15/2023 Mild cognitive impairment 05/06/20192022 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 10/15/2023 Overactive bladder 04/26/2019 10/15/2023 Raynaud's phenomenon 04/26/2019 10/15/2023 Encounters Date Type Department Care Team Description 01/22/2025 Refill [facility] [address] [facility] [address] [place] [address] Ganesh De La Cruz DNP from Last 3 Months Social History Tobacco Use Types Packs/Day Years Used Date Smoking Tobacco: Never Passive Smoke Exposure: Never Smokeless Tobacco: Never Tobacco Cessation:Counseling Given: Yes Alcohol Use Standard Drinks/Week Comments Never 0 (1 standard drink = 0.6 oz pur e alcohol) Alcohol Answer Date Recorded How often do you have a drink containing alcohol ? 0 08/11/2024 How many drinks containing a lcohol do you have on a typical day when you are drinking? 0 08/11/2024 How often do you have six or more drinks on one occasion? 0 08/11/2024 Housing Stability Answer Date Recorded What is your housing situation today? I have leopoldorene guevara 08/11/[address] you li ve. Do you have problems with any of the following? None of the above 08/11/2024 Food Insecurity Answer Date Recorded Within the past 12 months, y ou worried that your food would run out before you got money to buy more: Never True 08/11/2024 Within the past 12 months,th e food you bought just didn't last and you didn't have enough money to get more: Never True Transportation Answer Date Recorded In the past 12 months, has l ack of transportation kept you from medical appts, meetings, work or from getting things needed for daily living? No 08/11/2024 Intimate Partner Violence Answer Date R ecorded Within the last year, have y ou been afraid of your partner or ex-partner? 2 08/11/2024 Within the last year, have y ou been humiliated or emotionally abused in other ways by your partner or ex-partner? 2 Within the last year, have y ou been kicked, hit, slapped, or otherwise physically hurt by your partner or ex-partner? 2 08/11/2024 Within the last year, have y ou been raped or forced to have any kind of sexual activity by your partner or ex-partner? 2 08/11/2024 Utilities Answer Date Recorded In the past 12 months, has t he electric, gas, oil or water company threatened to shut off services in your home? No 08/11/2024 Depression Answer Date Recorded Patient Health Questionnaire-2 Score 0 08/11/2024 Internet Access Answer Date Recorded Internet Access Q1 Yes 08/11/2024 Internet Access Q2 Not on file 08/11/2024 Sex and Gender Information Value Date Recorded Sex Assigned at Male 10/04/2023 10:21 AM EST Legal Sex Male 6:22 PM EDT Gender Identity Male 08/16/2022 6:22 PM EDT Sexual Orientation Choose not to disclose 2021 6:22 PM EDT Last Filed Vital Signs Vital Sign Reading Time Taken Comments Blood Pressure 136/80 08/11/2024 1:59 PM EDT Pulse 74 08/11/2024 1:59 PM EDT Temperature 36.6 ??C (97.8 ??F) 08/11/2024 1:59 PM ED T Respiratory Rate - - Oxygen Saturation 100% 08/11/2024 1:59 PM EDT Inhaled Oxygen Concentration - - Weight 66.5 kg (146 lb 9.6 oz) 08/11/2024 1:59 P M EDT Height 174.2 cm (5' 8.6 ) 07/31/2022 10:02 AM ED T Body Mass Index 21.9 07/31/2022 10:02 AM EDT Plan of Treatment Health Maintenance Due Date Last Done Comments SDOH Screening 1945 Pneumococcal Vaccine: 50+ Years (2 of 2 - PPSV23) 10/03/2018 10/03/2017 RSV Patients and Patients Aged 60 years or older (1 - 1-dose 75+ series) 01/06/2020 COVID-19 Vaccine (4 - 2023-2 5 season) 2024 09/29/2021, 12/27/2020, 11/29/2020 Influenza Vaccine (#1) 2024 10/03/2017 Tobacco Screening 10/15/2024 10/15/2023 Alcohol/Substance Use Screening 08/11/2025 08/11/2024 Depression Screening 08/11/2025 08/11/2024, 08/11/2024 Lipid Panel 10/15/2028 10/15/2023, 07/31/2022 DTaP/Tdap/Td Vaccines (2 - T d or Tdap) 07/10/2031 07/10/2021, 06/20/2011 Zoster Vaccines Completed 02/06/2022, 12/03/2021, 06/20/2011 HIB Vaccines Aged Out No longer eligi ble based on patient's age to complete this topic HPV Vaccines Aged Out No longer eligi ble based on patient's age to complete this topic Hepatitis A Vaccines Aged Out No long er eligible based on patient's age to complete this topic Hepatitis B Vaccines Aged Out No long er eligible based on patient's age to complete this topic IPV Vaccines Aged Out No longer eligi ble based on patient's age to complete this topic Meningococcal Vaccine Aged Out No ally iris eligible based on patient's age to complete this topic RSV under 20 months Aged Out No longe r eligible based on patient's age to complete this topic Rotavirus Vaccines Aged Out No longer eligible based on patient's age to complete this topic Procedures Procedure Name Priority Date/Time Associated Diagnosis Comments LIPID PANEL, STANDARD Routine 10/15/2023 10:48 AM EST Renal agenesis from Last 3 Months or Most Recently Relevant to Health Maintenance Results * (ABNORMAL) Lipid Panel, Standard (10/15/2023 10:48 AM EST) Cholesterol, Total 201(H) (<200) MG/DL [facility] Triglyceride (mg/dL) in Serum/Plasma 69 (<150) MG/DL [facility] HDL Cholesterol 55 (>39) MG/DL [facility] LDL Cholesterol, Calculated 132(H) (0-130) MG/DL [facility] Non HDL Chol. (LDL+VLDL) 146 (<160) MG/DL [facility] Comment: Testing performed or reported by [facility], a Service of [facility], [address] [place] [address] Jose Perdomo MD, Podiatry Professor [facility]# [id number] Blood Venous blood specimen / Unknown 10/15/2023 10:48 AM EST 10/15/2023 10:49 AM EST Ganesh De La Cruz DNP LAB BLOOD ORDERABLES Final Result [facility] [address] [place] [address] from Last 3 Months or Most Recently Relevant to Health Maintenance Insurance [facility] * Guarantor: Torres Mario Account Type Relation to Patient Date of Phone Billing Address Dental Self Care Teams Election Watcher Relationship Specialty Start Date End Date Ganesh De La Cruz DNP [address] [place] [address] [place] [address] PCP - General Family Medicine 03/24/23
--- OUTSIDE RECORDS SUMMARY | 2025-01-26 10:26 | XMS_ITS | Encounter Summary ---
Author Organization [employer] Address [address] [facility] 7t [place] [address] Care Team Providers Care Farm Operations Technical Director Name Role Phone Ganesh De La Cruz DNP Primary Care Provider [phone] Reason for Visit * Reason Comments Med Refill Encounter Details Date Type Department Care Team (Late st Contact Info) Description 01/22/2025 Refill [facility] [address] [facility] [address] [place] [address] Ganesh De La Cruz DNP [address] [place], [place] [id number] Social History Tobacco Use Types Packs/Day Years [...] is your housing situation today? I have leopoldo guevara 08/11/[address] you [...] the past 12 months, has t he [email or web address], gas, oil or water company threatened to [...] encounter Miscellaneous Notes * Telephone Encounter - Luis F Vieira [place] - 01/24/2025 8:35 AM EDT PCP: Ganesh De La Cruz DNP Last in-person office visit: 08/11/2024 Óscar Dukes PA-C Lab Results Component Value Date BUN 36 (H) 03/17/2024 CREATININE 1.71 (H) 03/17/2024 EGFRCREATINI 36 10/15/2023 K 5.2 10/15/2023 TSH 4.65 (H) 10/15/2023 Assessment: [] Protocol passed [] Lab due [] Appointment due Plan: [] Please refill for 60 days [] Lab [] BMP [] TSH [] A1C [] Appointment due: No future appointments. Comments: documented in this encounter Plan of Treatment Not on file documented as of this encounter Visit Diagnoses Not on filedocumented in this encounter Care Teams Farm Operations Technical Director Relationship Specialty Start Date End Date Ganesh De La Cruz DNP [address] [facility] [place] [address] PCP - General Family Medicine 03/24/23 documented as of this encounter
--- OUTSIDE RECORDS SUMMARY | 2025-01-26 10:26 | XMS_ITS | Encounter Summary ---
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 Jarrell Lafleur NPI# [id number], , ) Social History Tobacco Use Types Packs/Day Years Used Date Smoking Tobacco: Never Assessed Sex and Gender Information Value Date Recorded Sex Assigned at Male 10/04/2023 10:21 AM EST Legal Sex Male 6:22 PM EDT Gender Identity Male 08/16/2022 6:22 PM EDT Sexual Orientation Choose not to disclose 2021 6:22 PM EDT documented as of this encounter Plan of Treatment Not on file documented as of this encounter Visit Diagnoses Not on filedocumented in this encounter Care Teams Rolled Materials Worker Relationship Specialty Start Date End Date Hanna Hunter FNP [address] [place] [address] PCP - General Family Medicine 08/16/22 03/23/23 Ganesh De La Cruz DNP [address] [place] [address] PCP - General Family Medicine 03/24/23 Hanna Hunter FNP [address] [place] [address] Family Medicine 08/16/22 10/14/23 documented as of this encounter
--- OUTSIDE RECORDS SUMMARY | 2025-01-26 10:26 | XMS_ITS | Clinical Summary ---
Author Organization [facility] Address [address] [place] [address] Care Team Providers Care Caterer Helper Name Role Phone Angelito Miguel MD Primary Care Provider [phone] Medications NIFEDIPINE CR OSMOTIC 30 MG OR TB24 * 30 UNITS = 30 DAY SUPPLY * 30 3 08/31/2009 Active Social History Tobacco Use Types Packs/Day Years Used Date Smoking Tobacco: Never Assessed Sex and Gender Information Value Date Recorded Sex Assigned at Not on file Legal Sex Male 1:03 AM EDT Gender Identity Not on file Sexual Orientation Not on file Plan of Treatment Health Maintenance Due Date Last Done Comments DTaP/Tdap/Td (1 - Tdap) 1963 Pneumococcal 50+ years (1 of 1 - PCV) 1995 Zoster (Shingrix) (1 of 2) 1995 RSV (1 - 1-dose 75+ series) 01/06/2020 COVID-19 Vaccine ( - 2023-2 5 season) 2024 Influenza (#1) 2024 HPV Vaccine Aged Out No longer eligi ble based on patient's age to complete this topic Hep A Aged Out No longer eligi ble based on patient's age to complete this topic Hep B Aged Out No longer eligi ble based on patient's age to complete this topic Hib Aged Out No longer eligi ble based on patient's age to complete this topic Meningococcal ACWY Aged Out No longer eligible based on patient's age to complete this topic Zoster (Zostavax) Discontinued Insurance [employer] Care Teams Caterer Helper Relationship Specialty Start Date End Date Angelito Miguel MD [place] [id number] [address] [address] PCP - General 01/23/10
== END 2025-01-26 10:45 | disposition home or self-care (01) ==
LOC: HO.HUSH 09:37
PROVIDERS: PCP Family Medicine; Visit Provider Urology
DX: Z13.9 Encounter for screening, unspecified (principal)

== ENCOUNTER → 2025-01-26 09:37 | Outpatient (BNVA) | payer MEDICARE, SELFPAY | PROVIDERS: PCP Family Medicine; Visit Provider Urology | DX: N40.1 Benign prostatic hyperplasia with lower urinary tract symptoms (principal); N31.9 Neuromuscular dysfunction of bladder, unspecified; N13.8 Other obstructive and reflux uropathy; Z96.0 Presence of urogenital implants | CPT/HCPCS: 81003; 99212 ==